=== PATIENT | female | born 1930 | race Caucasian/White ===

== ENCOUNTER → 2019-09-18 | Outpatient (CLI) | payer OTHER ==
[~2019-09-18] VITALS: Ht 167.6 cm; Wt 61.7 kg
[~2019-09-18] MED LIST: ASA81BEC PO; CARVEDILOL12.5 MG PO; CRESTOR5 MG PO; LEVO-T100 MCG PO; NAPROSYN500 M1 PO; NAPROSYN500 MG PO; NORCO 5-325 TA1 EAC1 PO; ONGLYZA5 MG PO; ZOLOFT 50 MG TA50 M1 PO
[2019-09-18 08:21] VITALS: BP 130/68
--- NOTE | 2019-09-18 08:58 | NUR ---
Pain Clinic Assessment: 1. History of Osteoarthritis: SPINE KNEE HIP History of Rheumatoid Arthritis: DENIES 2. Height: 5 ft. 6 in. 167.6 cm. Weight: 136.0 lb. oz. 61.689 kg. Patient's BMI: 22.0 3. Vital Signs: BP: 130/68 Pulse: 61 Resp: 14 Temp: 02 Sat: 98 ECG Mon: 4. Pain Intensity: 8 5. Fall Risk: Dizziness: N Needs help standing or walking: N Fallen in the last 3 months: N Fall risk comments: 6. Patient on Blood Thinner: None 7. History of Hypertension: N 8. Opioid Therapy greater than 6 weeks: N Opiate Contract Signed: 9. Risk Assessment Tool Provided: 10. Functional Assessment Tool: 11. Recreational Drug Use: Never Drug Type: Tobacco Use: Never Smoker Tobacco Type: Amount or Packs/day: How Many Years: Alcohol Use: No Frequency: Quant:
--- NOTE | 2019-10-02 12:47 | HPC ---
[facility] [place] [address] PAIN MANAGEMENT CONSULTATION Name: CHENCHO SINGLETON Room #: REG [facility].#: [id number] Admission: 09/18/19 Attend Phys: Willie Miramontes DO Discharge: Date of : 08/11/30 Report #: [id number] THIS REPORT FOR: //name// CC: Dr. Eduard Walker FAM physician/PCP Willie Miramontes DATE OF SERVICE: 09/18/2019 REFERRING PHYSICIAN: Dr. Eduard Walker. CHIEF COMPLAINT: Left low back pain. HISTORY OF PRESENT ILLNESS: As you know, the patient is a pleasant 89-year-old female who has had a longstanding history of left low back pain directly over the L3-L4 facet joint. The patient reports she has had pain since 10/27/2018. She denies specific injury or trauma that may have led to symptom occurrence. She has undergone left L3, L4, intra-articular facet injection with another pain clinic with good efficacy. She noted improvement in symptoms lasting for months. She returns to that clinic to undergo next in the series of injections when her pain returned. She states at that visit, the procedure was done completely differently, it was not done under x-ray imaging and she received no pain improvement. She sought further evaluation through Neurosurgery, Dr. Eduard Walker who evaluated the patient and determined her source of symptoms appears to be related to the L3-L4 level and she was subsequently referred to our clinic as the patient did not feel she was getting a response from previous injections. She indicates that her pain started spontaneously resolved with an intra-articular facet injection for a period of almost 5 months. She has been referred to our clinic to undergo left L3, L4, intra-articular facet injection in hopes of improving pain. The patient indicates today pain is continuous, describes the pain as aching. She places current pain score at 8/10, daily average at 8/10, worst pain has been is 10/10. The patient states standing and walking exacerbate symptoms, sitting and lying down completely resolves her pain. She has been referred to our service for this left L3, L4, intra-articular facet arthropathy pain. PAST MEDICAL HISTORY: 1. Osteoporosis. 2. Hypertension. 3. Peptic ulcer disease. 4. Chronic left low back pain. 5. Diabetes mellitus type 2. PAST SURGICAL HISTORY: 1. Appendectomy. [address] [address] PAIN MANAGEMENT CONSULTATION Name: CHENCHO SINGLETON Room #: REG [facility] De[facility]re#: [id number] Admission: 09/18/19 Attend Phys: Willie Miramontes DO Discharge: Date of : 08/11/30 Report #: [id number] 2. Cataract surgery. 3. Cholecystectomy. 4. Pyloroplasty with vagotomy. 5. Laminectomy x 2. 6. Left knee partial replacement. 7. T12 kyphoplasty. SOCIAL HISTORY: The patient reports herself a nonsmoker. She denies IV or illicit drug use. Denies any chronic alcohol use. She is retired, retired years ago, not receiving workmen's compensation or is she trying to obtain disability benefits. She is unaccompanied at today's visit. REVIEW OF SYSTEMS: Positive for weight change, decrease in appetite, fatigue and weakness, wearing corrective eyewear, cataracts, loss of appetite, peptic ulcer disease, nocturia, varicose veins, changes in hair and nail texture, depression, insomnia, thyroid disease, heat and cold intolerance, bleeding and bruising tendencies. All other review of systems negative per 12-point review of systems other than those listed in history of present illness. Pain impact score 42/70 indicating [id number] interference of daily activities secondary to pain. ALLERGIES: CODEINE. CURRENT MEDICATIONS: Hydrocodone 5/325 one-half tab p.o. q. 8 hours p.r.n. for pain, levothyroxine 100 mcg per day, aspirin 81 mg per day, Zoloft 50 mg per day, Onglyza 5 mg once a day, carvedilol 12.5 mg twice a day, rosuvastatin 5 mg per day. IMAGING: MRI lumbar spine obtained on 04/26/2019 shows vertebroplasty T12 with posterior fragment noted within the spinal canal effacing the ventral thecal sac. Mild compression anterior superior endplate of L1 grade 1 anterolisthesis of L4 on L5, grade 1 retrolisthesis of L3 on L4, postoperative changes intervertebral cage placement at L2-L3 laminectomies noted at L2-L3, L3-L4, and L4-L5 as well as L5-S1. Multilevel degenerative changes. PQRS: The patient has known osteoarthritic changes of the lumbar spine, bilateral knees and hips. Denies rheumatoid arthritis, placing pain intensity 8/10. She is not a fall risk, has not had a fall in last 3 months. She is not on blood thinners. She is treated for hypertension. She is not on chronic opioids. She has a low opioid addiction potential based on our assessment tool. Pain impact score is 42/70, moderate to severe interference of daily activities secondary to pain. PHYSICAL EXAMINATION: [facility] [address] [place] [address] PAIN MANAGEMENT CONSULTATION Name: CHENCHO SINGLETON Room #: [facility]#: [id number] Admission: 09/18/19 Attend Phys: Willie Miramontes DO Discharge: Date of : 08/11/30 Report #: [id number] VITAL SIGNS: Blood pressure 130/68, pulse 61, respiratory rate 14 and unlabored. The patient is 98% on room air. Height 5 feet 6 inches tall, weight 136 pounds, BMI calculated 22.0. GENERAL: Well-developed, well-nourished, well-hydrated 89-year-old female appearing stated age, placing current pain score at 8/10. HEENT: Normocephalic, atraumatic. Pupils equal, round, reactive to light. Extraocular muscles are intact. NEUROLOGIC: Speech fluent. The patient deemed a good historian. LUNGS: Clear, no wheeze, rhonchi or rales. CARDIOVASCULAR: Regular. No appreciable gallop, no rub. ABDOMEN: Soft, nontender, nondistended, normoactive bowel sounds. EXTREMITIES: Show no clubbing, no cyanosis, and no edema. MUSCULOSKELETAL: The patient does have palpatory tenderness over the left lower lumbar spine, tenderness appears to be related to the L3-L4 level. Lumbar provocation testing including extension, rotation, lateral flexion to the left exacerbates symptoms to the right, negative pain generation. Seated straight leg raising is negative. Supine straight leg raising is negative. Tolu's test is negative. Gait is mildly antalgic. Muscle bulk and tone equal and symmetrical in lower extremities. ASSESSMENT: 1. Lumbosacral spondylosis without radiculopathy. 2. Facet arthropathy of lumbar spine. 3. Chronic intractable pain. PLAN: 1. Based on today's physical exam and history, the patient has provided, the description the patient uses in regards to pain as well as the findings of her MRI and point specific pain in the left lower back likely source of the patient's pain is the L3-L4 facet joint. The patient has undergone injections in the area with good efficacy initially, the second injection did not sound as if she was given an intra-articular facet injection, though the available paperwork says that she did receive this injection, it would appear to this physician, the patient actually received a trigger point injection as the patient states she was not under x-ray imaging. The procedure was done at the bedside and the patient was in a seated position during the actual procedure, which would not be consistent with intraarticular facet injection. The patient was subsequently referred to our clinic to trial this injection. She did receive excellent benefit with the initial injection, which was done under x-ray imaging in a prone position. 2. Due to third democrat payer restrictions, authorization had to be obtained before the patient can undergo left L3-L4, intra-articular facet injection as requested by Dr. Eduard Walker, the patient's neurosurgeon. Authorization could take anywhere from 4-7 working days. We will begin this process immediately. Once we have this authorization, we will have the patient return to undergo the procedure. We are hopeful to have this procedure approved [address] [address] PAIN MANAGEMENT CONSULTATION Name: CHENCHO SINGLETON Room #: REG [facility] [place]#: [id number] Admission: 09/18/19 Attend Phys: Willie Miramontes DO Discharge: Date of : 08/11/30 Report #: [id number] quickly and have the patient return to undergo the first in the series. We have made changes in the patient's medication. We have provided her with naproxen 500 mg dose 1 tab p.o. t.i.d. I have given the patient #90 tablets, advised to watch for side effects of dyspepsia, worsening blood pressure, lower extremity edema with its use. This should help for a pain standpoint and improve symptoms at present. We will review efficacy at followup visit. 3. We wish to thank Dr. Eduard Walker for the opportunity to see the patient in consultation. We will keep you apprised of her response to the requested left L3-L4 intra-articular facet injection. We are currently undergoing authorization to achieve. Again, we wish to thank you for the opportunity to see the patient in consultation. <ELECTRONICALLY SIGNED> By: Willie Miramontes DO 10/02/19 1247 [id number] 1814 Willie Miramontes DO /nt
== END ==
LOC: PAIN 06:43
DX: M47.817 Spondylosis without myelopathy or radiculopathy, lumbosacral region (principal); M12.88 Other specific arthropathies, not elsewhere classified, other specified site; G89.4 Chronic pain syndrome; M81.0 Age-related osteoporosis without current pathological fracture; I10 Essential (primary) hypertension; E11.9 Type 2 diabetes mellitus without complications; Z88.8 Allergy status to other drugs, medicaments and biological substances; Z79.899 Other long term (current) drug therapy

== ENCOUNTER → 2019-10-10 | Outpatient (CLI) | payer OTHER ==
[~2019-10-10] VITALS: Ht 167.6 cm; Wt 65.4 kg
[2019-10-10 09:36] VITALS: BP 114/70
--- NOTE | 2019-10-10 10:00 | NUR ---
Pain Clinic Assessment: 1. History of Osteoarthritis: SPINE KNEE HIP History of Rheumatoid Arthritis: DENIES 2. Height: 5 ft. 6 in. 167.6 cm. Weight: 144.2 lb. oz. 65.409 kg. Patient's BMI: 23.3 3. Vital Signs: BP: 114/70 Pulse: 80 Resp: 20 Temp: 02 Sat: 97 ECG Mon: 4. Pain Intensity: 8 5. Fall Risk: Dizziness: N Needs help standing or walking: N Fallen in the last 3 months: N Fall risk comments: 6. Patient on Blood Thinner: None 7. History of Hypertension: N 8. Opioid Therapy greater than 6 weeks: N Opiate Contract Signed: 9. Risk Assessment Tool Provided: 10. Functional Assessment Tool: 11. Recreational Drug Use: Never Drug Type: Tobacco Use: Never Smoker Tobacco Type: Amount or Packs/day: How Many Years: Alcohol Use: No Frequency: Quant:
--- NOTE | 2019-10-16 14:01 | HPC ---
[facility] [place] [place] [address] PAIN MANAGEMENT CONSULTATION Name: CHENCHO SINGLETON Room #: REG [facility].#: [id number] Admission: 10/10/19 Attend Phys: Willie Miramontes DO Discharge: Date of : 08/11/30 Report #: [id number] THIS REPORT FOR: //name// CC: [facility] physician/PCP Willie Walker DATE OF SERVICE: 10/10/2019 CHIEF COMPLAINT: Left low back pain. HISTORY OF PRESENT ILLNESS: As you know, the patient is a very pleasant 89-year-old female with longstanding history of left low back pain directly over the L3-L4 facet joint. She was seen in consultation per the request of Dr. Eduard Walker 09/18/2019. We began the authorization process that day and have successfully completed that process. We have now received approval for the patient to undergo left L3-L4 intra-articular facet injection per the request of Dr. Eduard Walker. She returns today in followup visit stating a pain level of 8/10. States her pain is exacerbated with activities, improves with rest and relaxation. She returns today to undergo left L3-L4 intra-articular facet injection under fluoroscopic guidance. ALLERGIES: CODEINE. CURRENT MEDICATIONS: Hydrocodone, levothyroxine, aspirin, Zoloft, Onglyza, carvedilol, rosuvastatin. SOCIAL HISTORY: The patient denies tobacco use. Denies IV or illicit drug use. Denies any chronic alcohol use. She is retired, retired years ago, unaccompanied today. IMAGING: No new imaging available. PQRS: The patient has osteoarthritic changes of the lumbar spine, bilateral knees and bilateral hips. She denies rheumatoid arthritis. She is placing current pain score at 8/10. She is not a fall risk, has not had a fall in last 3 months. She is not on blood thinners, not treated for hypertension. She is on chronic opioids and has a low opioid addiction potential. Pain impact score 42/70 indicating [id number] interference of daily activities secondary to pain. PHYSICAL EXAMINATION: VITAL SIGNS: Blood pressure 114/70, pulse 80, respiratory rate 20 and unlabored. The patient is 97% on room air. Height 5 feet 6 inches tall, weight 144.2 pounds and BMI calculated 23.3. GENERAL: Well-developed, well-nourished, well-hydrated 89-year-old female [address] [address] PAIN MANAGEMENT CONSULTATION Name: CHENCHO SINGLETON [facility] [id number] Admission: 10/10/19 Attend Phys: Willie Miramontes DO Discharge: Date of : 08/11/30 Report #: [id number] appearing stated age, pain is rated today at 8/10. HEENT: Normocephalic, atraumatic. Pupils equal, round, reactive to light. EXTREMITIES: Show no clubbing, no cyanosis, and no edema. MUSCULOSKELETAL: Upper extremity strength and lower extremity strength equal and symmetrical 5/5. She is intact to light touch from L1 through S2 dermatomes. Seated straight leg raising negative. Supine straight leg raising negative. Modified Gaenslen's positive for axial low back pain. Ankle clonus negative. Babinski is negative. ASSESSMENT: 1. Lumbosacral spondylosis without radiculopathy. 2. Facet arthropathy of the lumbar spine. 3. Chronic intractable pain. PLAN: 1. The patient returns today in followup visit having received precertification to undergo left L3-L4 intra-articular facet injection under fluoroscopic guidance. This was requested by the patient's neurosurgeon, Dr. Eduard Walker to determine if this is the area of discomfort for which the patient is describing pain level of 8/10. She returns today to undergo the procedure as requested. We have discussed with the patient the risks and the benefits of this procedure. These risks include but are necessarily limited to bleeding, bruising, infection, worsening pain, no relief of pain, also risk of temporary or permanent muscle weakness, temporary or permanent nerve damage, possible paralysis, post-dural puncture headache and . The patient states understood and wished to proceed. 2. No medication changes made at today's visit. The patient will continue current medical therapy as previously prescribed. 3. We will see the patient back in followup visit on an as needed basis. DESCRIPTION OF PROCEDURE: Left L3-4 intra-articular facet injection under fluoroscopic guidance. This is the first procedure of the first series that the patient is undergoing. After obtaining written consent, the patient was taken back to the fluoroscopy suite and placed in a prone position with a pillow under the abdomen to decrease the lumbar lordosis and to facilitate needle entry into the facet joints. The skin overlying the lumbosacral area was prepped and draped in an aseptic fashion. AP and lateral fluoroscopic imaging was obtained. Optimal position of the fluoroscope occurred when the joint line was first visualized. The facet joints were identified radiographically directed adjacent to the superior articular process of the caudad vertebrae. The skin overlying the [address] [address] PAIN MANAGEMENT CONSULTATION Name: CHENCHO SINGLETON Room #: REG [facility]#: [id number] Admission: 10/10/19 Attend Phys: Willie Miramontes DO Discharge: Date of : 08/11/30 Report #: [id number] target site of injection was anesthetized using 3 mL of 1% lidocaine. A 22-gauge 3-1/2 inch spinal needle with a bent tip was advanced towards the L3-L4 facet joint on the left side under fluoroscopic guidance. The firm posterior capsule had its characteristic feel and the needle was advanced a few additional millimeters beyond the joint capsule into the joint space, but not into the articular cartilage. After the joint space was entered and aspiration was negative for heme or CSF, 0.2 mL of Omnipaque was injected demonstrating a characteristic facet arthrogram. After negative aspiration for heme or CSF, 1.5 mL of a solution containing 1 mL, 40 mg/mL 40 mg total triamcinolone and 0.5 mL bupivacaine 0.5% was slowly injected at each of one facet. The needle was then removed. There were no apparent complications. The patient tolerated the procedure well and was carefully escorted to the recovery room in stable condition. The VAS was 8/10 before the procedure and 0/10 ten minutes after the procedure. After meeting discharge criteria, the patient was discharged home. <ELECTRONICALLY SIGNED> By: Willie Miramontes DO 10/16/19 1401 0933 1031 Willie Miramontes DO /nt
== END | disposition home or self-care (01) ==
LOC: PAIN 09-25 12:49
DX: M54.5 Low back pain (principal); M47.817 Spondylosis without myelopathy or radiculopathy, lumbosacral region; M47.26 Other spondylosis with radiculopathy, lumbar region; G89.29 Other chronic pain; M19.90 Unspecified osteoarthritis, unspecified site; Z98.890 Other specified postprocedural states; Z79.891 Long term (current) use of opiate analgesic; Z79.82 Long term (current) use of aspirin; Z88.8 Allergy status to other drugs, medicaments and biological substances; Z79.899 Other long term (current) drug therapy

== ENCOUNTER → 2020-06-17 | Outpatient (CLI) | payer OTHER ==
[~2020-06-17] VITALS: Ht 165.1 cm; Wt 64.7 kg
[~2020-06-17] MED LIST changes: +PLAVIX 75 MG TA75 MG PO
--- NOTE | ~2020-06-17 | HPC ---
[facility] [address] PAIN MANAGEMENT CONSULTATION Name: CHENCHO SINGLETON Room #: REG [facility].#: [id number] Admission: 06/17/20 Attend Phys: Willie Miramontes DO Discharge: Date of : 08/11/30 Report #: [id number] THIS REPORT FOR: cc: STACY FONTENOT MD, HEATHER L. MD Johnson, James E. DO ~ CC: STACY Miramontes [facility] DATE OF SERVICE: 06/17/2020 CHIEF COMPLAINT: Left back pain. HISTORY OF PRESENT ILLNESS: As you know, the patient is a very pleasant 89-year-old female who returns today in followup visit having recurrence of mid back pain. As you are aware, the patient underwent left L3 intraarticular facet injection at our visit of 10/10/2019. She reported near 100% improvement in overall pain, lasting until just recently. She has relocated during the winter to the [place], [place] area where she has been since that injection. She reports during that stay in [place] she had a suspected transient ischemic attack and was started on Plavix. She returns today to discuss the possibility of undergoing left intraarticular facet injection at the L3 level to address her ongoing pain, but understands she has to discontinue her Plavix. She returns today in followup visit to begin that process of prior authorization and to discuss the process of coming off her Plavix. ALLERGIES: CODEINE. CURRENT MEDICATIONS: Rosuvastatin, carvedilol, Onglyza, Zoloft, levothyroxine, naproxen, hydrocodone and Plavix. SOCIAL HISTORY: The patient denies tobacco, denies IV or illicit drug use. Denies any chronic alcohol use. She is retired, retired years ago. She is unaccompanied at today's visit. IMAGING: No new imaging available. PQRS: The patient has arthritic changes of the lumbar spine, bilateral hips and knees. No rheumatoid arthritis. She is placing pain impact today at 5/10. She is not a fall risk, has not had a fall in last 3 months. She is on blood thinners in the form of Plavix and has continued the therapy. She is treated for hypertension. She is not on chronic opioids, but is currently taking opioid medication for pain control. She has a low opioid addiction potential. Pain impact of 42/70, moderate interference of daily activities secondary to pain. [facility] [address] [place] [address] PAIN MANAGEMENT CONSULTATION Name: CHENCHO SINGLETON Room #: REG [facility] [place]#: [id number] Admission: 06/17/20 Attend Phys: Willie Miramontes DO Discharge: Date of : 08/11/[birth year] Report #: [id number] PHYSICAL EXAMINATION: VITAL SIGNS: Blood pressure 91/53, pulse is 70, respiratory rate 14 and unlabored. The patient is 95% on room air. Height 5 feet 5 inches tall, weight 142.6 pounds, BMI calculated 23.7. GENERAL: Well-developed, well-nourished, well-hydrated 89-year-old female appearing stated age, pain is rated today at approximately 5/10. HEENT: Normocephalic, atraumatic. Pupils equal, round and reactive. Speech is fluent. EXTREMITIES: Show no clubbing, no cyanosis, no edema. MUSCULOSKELETAL: Seated straight leg raising negative. Supine straight leg raising negative. Tolu's test is negative. Modified Gaenslen's positive for axial low back pain centered around the L3 level. Lumbar provocation testing including extension, rotation, lateral flexion all intensify low back symptoms. ASSESSMENT: 1. Lumbosacral spondylosis without radiculopathy. 2. Facet arthropathy of the lumbar spine. 3. Chronic intractable pain. PLAN: 1. The patient returns today in followup visit requesting to begin the process of authorization to undergo left L3 intraarticular facet injection. The patient underwent this procedure in September 2019 with near complete resolution of symptoms until just recently. Unfortunately, due to the patient's use of Plavix, we cannot provide the injection today. She will have to come off the Plavix for 7 days prior and we will obtain the authorization for the patient to undergo the procedure. The patient is agreeable with this plan. 2. The patient will contact her prescribing physician of Plavix to make sure that she can come off the therapy. We request that the patient have a note provided to us indicating that she can come off the Plavix. The patient's TIA occurred in February of this year and typical treatment is 6 months of medication without disruption. I will need a note from the physician prescribing the Plavix that the patient can come off the medication for the 7 days required by VERITO guidelines to undergo any neuraxial injection. 3. We will begin the prior authorization process for the patient to undergo left L3 intraarticular facet injection. This authorization process could take anywhere from 4-7 working days. We will begin this process immediately and contact the patient once it has been completed, confirming the patient is off the Plavix in the appropriate amount of time. 4. No medication changes made at today's visit. The patient will continue current medical therapy as previously prescribed except for the potential [address] [address] PAIN MANAGEMENT CONSULTATION Name: CHENCHO SINGLETON Room #: REG [facility]#: [id number] Admission: 06/17/20 Attend Phys: Willie Miramontes DO Discharge: Date of : 08/11/30 Report #: [id number] adjustments in her Plavix therapy. We will see her back in followup visit once we have obtained the authorization and her Plavix has been discontinued. By: 1449 1548 Willie Miramontes DO /nt
[2020-06-17 10:37] VITALS: BP 91/53
--- NOTE | 2020-06-17 11:13 | NUR ---
Pain Clinic Assessment: 1. History of Osteoarthritis: SPINE KNEE HIP History of Rheumatoid Arthritis: DENIES 2. Height: 5 ft. 5 in. 165.1 cm. Weight: 142.6 lb. oz. 64.683 kg. Patient's BMI: 23.7 3. Vital Signs: BP: 91/53 Pulse: 70 Resp: 14 Temp: 02 Sat: 95 ECG Mon: 4. Pain Intensity: 5 WITH MEDS 5. Fall Risk: Dizziness: Y Needs help standing or walking: N Fallen in the last 3 months: N Fall risk comments: 6. Patient on Blood Thinner: Clopidogrel Bisulf(Plavix 7. History of Hypertension: Y 8. Opioid Therapy greater than 6 weeks: N Opiate Contract Signed: 9. Risk Assessment Tool Provided: 10. Functional Assessment Tool: 11. Recreational Drug Use: Never Drug Type: Tobacco Use: Never Smoker Tobacco Type: Amount or Packs/day: How Many Years: Alcohol Use: No Frequency: Quant:
== END ==
LOC: PAIN 03-05 12:38
PROVIDERS: ATTEND Anesthesiology Pain Medicine
DX: M47.817 Spondylosis without myelopathy or radiculopathy, lumbosacral region (principal); G89.29 Other chronic pain; Z88.5 Allergy status to narcotic agent; Z79.899 Other long term (current) drug therapy

== ENCOUNTER → 2020-07-02 | Outpatient (CLI) | payer OTHER ==
[~2020-07-02] VITALS: Ht 167.6 cm; Wt 64.4 kg
[~2020-07-02] MED LIST changes: +LORCET 5-325 M1 EACH PO
--- NOTE | ~2020-07-02 | HPC ---
[facility] [place] [address] PAIN MANAGEMENT CONSULTATION Name: CHENCHO SINGLETON Room #: [facility].#: [id number] Admission: 07/02/20 Attend Phys: Willie Miramontes DO Discharge: Date of : 08/11/[birth year] Report #: [id number] THIS REPORT FOR: cc: STACY FONTENOT MD, HEATHER L. MD Johnson, James E. DO ~ CC: STACY Walker DATE OF SERVICE: 07/02/2020 REFERRING PHYSICIAN: Dr. Eduard Walker. CHIEF COMPLAINT: Low back pain, lower extremity pain with paresthesias. HISTORY OF PRESENT ILLNESS: As you know, the patient is a very pleasant 89-year-old female returning in followup visit having received preauthorization and discontinuing her Plavix to undergo next in the series of lumbar epidural injections. As you are aware, the patient did very well with previous epidural injection reporting near 6-month improvement in overall pain. Unfortunately, her symptoms have begun to return. She returns today in followup visit having received authorization to undergo lumbar epidural injection. She is placing pain score at 8/10. She has discontinued her Plavix 10 days ago in preparation for today's procedure. She has received authorization to come off that medication. ALLERGIES: CODEINE. CURRENT MEDICATIONS: Hydrocodone, levothyroxine, aspirin, Zoloft, Onglyza, carvedilol and rosuvastatin. SOCIAL HISTORY: The patient denies tobacco use. Denies IV or illicit drug use. Denies any chronic alcohol use. She is retired, retired years ago, unaccompanied today. IMAGING: No new imaging available. PQRS: The patient has arthritic changes of the lumbar spine, bilateral knees and hips. No rheumatoid arthritis. She is placing pain intensity today at 8/10. She is not a fall risk nor has she had a fall in last 3 months. She is on Plavix, but discontinued the medication 10 days ago in preparation for today's procedure. She is treated for hypertension, but is not on any chronic opioids. She has a low opioid addiction potential. Pain impact today 42, severe interference of daily activities secondary to pain. [facility] [address] [place] [address] PAIN MANAGEMENT CONSULTATION Name: CHENCHO SINGLETON Room #: [facility]#: [id number] Admission: 07/02/20 Attend Phys: Willie Miramontes DO Discharge: Date of : 08/11/[birth year] Report #: [id number] PHYSICAL EXAMINATION: VITAL SIGNS: Blood pressure 127/63, pulse 61, respiratory rate 15 and unlabored. The patient is 98% on room air. Height 5 feet 6 inches tall, weight 142 pounds, BMI calculated 22.9. GENERAL: Well-developed, well-nourished, well-hydrated 89-year-old female appearing stated age, pain is rated today 8/10. HEENT: Normocephalic, atraumatic. Pupils equal, round and reactive. Speech fluent. EXTREMITIES: Show no clubbing, no cyanosis. No appreciable edema. MUSCULOSKELETAL: Seated straight leg raising negative. Supine straight leg raising mildly positive. Tolu's test is negative. Modified Gaenslen's positive for axial low back pain. Ankle clonus negative. Babinski is negative. Well-healed surgical scar of lumbar spine. ASSESSMENT: 1. Lumbar radiculopathy. 2. Facet arthropathy of the lumbar spine. 3. Lumbosacral spondylosis with radiculopathy. 4. Chronic intractable pain. PLAN: 1. The patient returns today in followup visit to undergo next in the series of epidural injections. She has done very well with previous injections hoping to see similar improvement today. Pain she is experiencing now is in the back, radiating down the left leg in a dermatomal distribution. She is prepared to undergo a lumbar epidural injection today. She has been advised risks and benefits of the procedure, states understood and wished to proceed. 2. No medication changes made at today's visit. The patient will restart her Plavix starting this evening and continue the medication as directed. 3. We will see the patient back in followup visit on an as needed basis. We are hopeful the patient will see good and prolonged benefit with today's procedure. PROCEDURE NOTE DESCRIPTION OF PROCEDURE: Lumbar epidural steroid injection under fluoroscopic guidance. After obtaining written consent, the patient was taken back to fluoroscopy suite, placed in prone position with pillow under abdomen to decrease lumbar lordosis. Skin overlying lumbosacral area then prepped and draped in aseptic fashion. Lumbar intervertebral spaces were identified by AP fluoroscopy. Skin and subcutaneous tissue overlying target site injection anesthetized with 3 mL of 1% lidocaine. A 20-gauge 3-1/2 inch Tuohy needle advanced under fluoroscopic guidance towards [address] [address] PAIN MANAGEMENT CONSULTATION Name: CHENCHO SINGLETON Room #: [facility]#: [id number] Admission: 07/02/20 Attend Phys: Willie Miramontes DO Discharge: Date of : 08/11/30 Report #: [id number] the epidural space using a paramedian approach. Epidural space identified using loss of resistance to air technique. After negative aspiration for heme or cerebrospinal fluid, 1 mL of Omnipaque injected. Lumbar epidurogram confirmed using both AP and lateral fluoroscopy. After negative aspiration for heme or cerebrospinal fluid, 5 mL of solution containing 2 mL 40 mg per mL, 80 mg total triamcinolone along with 3 mL of lidocaine 1% injected slowly. Needle then retracted approximately half way, flushed with 1 mL of 1% lidocaine and then removed. Sterile bandage placed over injection site. No new motor deficits present in the lower extremities following procedure. The patient tolerated procedure well, carefully escorted to recovery room in stable condition. No apparent complications. After meeting discharge criteria, the patient discharged home. By: [id number] Willie Miramontes DO /nt
[2020-07-02 12:38] VITALS: BP 127/63
--- NOTE | 2020-07-02 12:44 | NUR ---
Pain Clinic Assessment: 1. History of Osteoarthritis: SPINE KNEE HIP History of Rheumatoid Arthritis: DENIES 2. Height: 5 ft. 6 in. 167.6 cm. Weight: 142.0 lb. oz. 64.411 kg. Patient's BMI: 22.9 3. Vital Signs: BP: 127/63 Pulse: 61 Resp: 15 Temp: 02 Sat: 98 ECG Mon: 4. Pain Intensity: 8 5. Fall Risk: Dizziness: N Needs help standing or walking: N Fallen in the last 3 months: N Fall risk comments: 6. Patient on Blood Thinner: Clopidogrel Bisulf(Plavix 7. History of Hypertension: Y 8. Opioid Therapy greater than 6 weeks: N Opiate Contract Signed: 9. Risk Assessment Tool Provided: 10. Functional Assessment Tool: 11. Recreational Drug Use: Never Drug Type: Tobacco Use: Never Smoker Tobacco Type: Amount or Packs/day: How Many Years: Alcohol Use: No Frequency: Quant:
== END ==
LOC: PAIN 07-01 11:27
PROVIDERS: ATTEND Anesthesiology Pain Medicine
DX: M54.5 Low back pain (principal); M47.27 Other spondylosis with radiculopathy, lumbosacral region; G89.29 Other chronic pain; Z79.899 Other long term (current) drug therapy; Z88.8 Allergy status to other drugs, medicaments and biological substances